=== PATIENT | male | born 1980 | race Caucasian/White ===

== ENCOUNTER 2018-03-28 02:04 | Emergency (ER) | payer OTHER ==
[~2018-03-28] VITALS: Ht 193 cm; Wt 104.3 kg
[~2018-03-28 02:04] MED LIST: AUGMENTIN 875875 MG PO; BACTRIM DS TAB1 EACH PO; BACTROBAN15 GM TP; CEPHALEXIN 500500 M3 PO; CLEOCIN HCL150 MG PO; HYDROCODON-ACE1 EAC7 PO; IBUPROFEN 600600 M1 PO; IBUPROFEN 800800 M1 PO; IBUPROFEN 800800 MG PO; KEFLEX500 MG PO; NOHOMEMEDICATIONS; NORCO 5-325 TA1 EACH PO; PERCOCET 5-3251 EACH PO; PHENERGAN 25 MG25 MG PO; ULTRACET TABLE1 EACH PO
[2018-03-28 02:12] VITALS: BP 133/108
== END 2018-03-28 02:48 | disposition home or self-care (01) ==
LOC: M.ERS 02:04
DX: S81.011A Laceration without foreign body, right knee, initial encounter (principal); J45.909 Unspecified asthma, uncomplicated; F17.210 Nicotine dependence, cigarettes, uncomplicated; Z86.14 Personal history of Methicillin resistant Staphylococcus aureus infection; Z88.5 Allergy status to narcotic agent; Y04.0XXA Assault by unarmed brawl or fight, initial encounter; Y93.89 Activity, other specified; Y92.89 Other specified places as the place of occurrence of the external cause; Y99.8 Other external cause status